=== PATIENT | male | born 1955 | race Caucasian/White ===

== ENCOUNTER → 2020-05-04 | Outpatient (CLI) | payer OTHER ==
[~2020-05-04] MED LIST: ACCUPRIL10 MG PO; ALDACTONE25 MG PO; ASPIR 8181 MG PO; HYDROCODONE-APA1 TA1 PO; ISORDIL40 M1 PO; LEVOTHYROXIN0.137 M1 PO; LIPITOR40 MG PO; METFORMIN HCL500 MG PO; MOBIC15 MG PO; NAPROSYN500 MG PO; NEURONTIN 300300 M1 PO; PLAVIX 75 MG TA75 MG PO; PROTONIX40 M1 PO; TOPROL XL25 MG PO; VASCEPA1 GM PO; ZETIA10 MG PO
== END ==
LOC: SJCVCIMAG 07:48
PROVIDERS: ATTEND Internal Medicine Cardiovascular Disease
DX: I25.10 Atherosclerotic heart disease of native coronary artery without angina pectoris (principal); I49.3 Ventricular premature depolarization; Z87.891 Personal history of nicotine dependence

== ENCOUNTER 2020-07-03 23:01 | Inpatient (IN) | payer OTHER ==
[~2020-07-03] VITALS: Ht 190.5 cm; Wt 97.1 kg
[2020-07-03 23:01] VITALS: BP 138/78
[2020-07-03 23:32] LABS: HEMATOCRIT 41.5 % (42.0-52.0); HEMOGLOBIN 13.7 gm/dL (14.0-18.0); MCH 29.6 pg (26.0-34.0); MCHC 33.1 g/dL (28.0-37.0); MCV 89.5 fL (80.0-100.0); PLATELET COUNT 157 thou/uL (150-400); RBC 4.64 mil/uL (4.50-6.00); RDW 15.2 % (10.5-14.5); WBC 2.8 thou/uL (4.0-11.0)
--- NOTE | 2020-07-03 23:47 | NUR ---
SANDY ([facility]) [phone] LORI ([facility]) [phone]
[2020-07-03 23:51] LABS: ALBUMIN 3.2 g/dL (3.4-5.0); ANION GAP 8 mmol/L (7-16); BUN 8 mg/dL (7-18); CALCIUM 8.4 mg/dL (8.5-10.1); CHLORIDE 103 mmol/L (98-107); CO2 28 mmol/L (21-32); CREATININE 0.9 mg/dL (0.7-1.3); DIRECT BILIRUBIN 0.1 mg/dL (<0.1-0.2); GLUCOSE 129 mg/dL (74-106); MAGNESIUM 1.6 mg/dL (1.8-2.4); PHOSPHORUS 2.6 mg/dL (2.5-4.9); SGOT 23 U/L (15-37); SGPT 23 U/L (30-65); SODIUM 139 mmol/L (136-145); TOTAL BILIRUBIN 0.6 mg/dL (0.2-1.0); TOTAL PROTEIN 6.8 g/dL (6.4-8.2); TROPONIN-I <0.06 ng/mL (<0.06)
[2020-07-03] MEDS ORDERED: HYDROXYZINE HCL25 M2 PO (23:51)
[2020-07-03] MEDS ORDERED: TREXALL7.5 MG PO (23:53)
[2020-07-03] MEDS ORDERED: AZULFIDINE500 MG PO (23:54)
[2020-07-03] MEDS ORDERED: NEURONTIN 300M300 M2 PO (23:54)
--- NOTE | 2020-07-03 23:55 | NUR ---
LEVI ([facility]) [phone]
[2020-07-03] MEDS ORDERED: ISOSORBIDE MONO60 M1 PO (23:56)
[2020-07-03] MEDS ORDERED: PROTONIX40 M4 PO (23:57)
[2020-07-03] MEDS ORDERED: ENALAPRIL MALEA10 M1 PO (23:58)
[2020-07-03] MEDS ORDERED: FOLIC ACID1 MG PO (23:58)
[2020-07-03 23:59] LABS: POTASSIUM 2.8 mmol/L (3.5-5.1)
[2020-07-04] VITALS (7 sets, daily range): BP systolic 111–141; BP diastolic 63–79
[2020-07-04] MEDS ORDERED: JARDIANCE10 MG PO
[2020-07-04] MEDS ORDERED: LEVO-T100 MCG PO (00:01)
[2020-07-04 00:35] LABS: ABSOLUTE NEUTROPHILS 1.9 thou/uL (1.4-8.2)
--- NOTE | 2020-07-04 03:44 | NUR ---
Kyree CASAS NP ROUNDED: SAID TO NOT DRAW AM LABS AT 03-0400 BUT TO WAIT UNTIL 4 HOURS AFTER LAST PO POTASSIUM DOSE DUE AT 0415. BLOOD CULTURES AND OTHER LABS RETIMED FOR 814. LAB INFORMED TO RETIMED LAB DRAW. WILL REPORT TO DAY SHIFT RN. COMPLETE NS WITH KCL AND THEN START NS PER Kyree CASAS NP.
[2020-07-04 08:33] LABS: HEMATOCRIT 41.9 % (42.0-52.0); HEMOGLOBIN 13.8 gm/dL (14.0-18.0); MCH 29.6 pg (26.0-34.0); MCHC 32.8 g/dL (28.0-37.0); MCV 90.3 fL (80.0-100.0); RBC 4.64 mil/uL (4.50-6.00); RDW 15.6 % (10.5-14.5); WBC 2.2 thou/uL (4.0-11.0)
[2020-07-04 08:49] LABS: CALCIUM 8.4 mg/dL (8.5-10.1); POTASSIUM 3.6 mmol/L (3.5-5.1)
--- NOTE | 2020-07-04 14:16 | EKG ---
[place] [address] [place] [address] ELECTROCARDIOGRAM REPORT Name: OMAR RUTLEDGE Room #: 349-I ADM IN ..#: [id number] Admission: 07/04/20 Attend Phys: Dawson Ornelas MD Discharge: Date of : 57 Report #: [id number] [facility] ED Test Date: 2020-07-03 Test Time: 23:09:19 Pat Name: OMAR RUTLEDGE Department: Room: [facility] Gender: M Advertisement Distributor: PAULINO : 1955 Requested By: Quentin Gaitan Order Number: [id number] MD: Momo Milner Measurements Intervals [place] Rate: 86 P: 57 HI: 174 QRS: 62 QRSD: 97 T: 56 QT: 389 QTc: 466 Interpretive Statements Sinus rhythm Borderline low voltage, extremity leads Baseline wander in lead(s) III,aVL,V6 Compared to ECG 04/20/2015 07:54:37 No significant changes Electronically Signed On 07-04-2020 14:16:33 RESEARCH CONSULTANT by Momo Milner [email or web address] <ELECTRONICALLY SIGNED> By: Momo Milner MD, [facility] 07/04/20 1416 230 08 Momo Milner MD, [facility] /EPI
--- NOTE | 2020-07-04 19:09 | NUR ---
Patient has slept through the day and does not seem to be in pain. respirations are even non labored on room air. will cont with plan of care.
--- NOTE | 2020-07-04 22:01 | NUR ---
PT ALERT AND ORIENTED X4 VSS AFEBRILE. C/O MARSHALL. MEDICAATED WITH 2 TYLENOL. FLU A&B RESENT TO LAB. BED DOWN CALL LIGHT IN REACH. NO S/S DISTRESS.
[2020-07-05 03:04] VITALS: BP 131/83
[2020-07-05 03:37] LABS: URINE BILIRUBIN NEGATIVE (Negative); URINE BLOOD NEGATIVE (Negative); URINE CLARITY CLEAR; URINE COLOR YELLOW; URINE GLUCOSE-RANDOM* 3+ (Negative); URINE KETONES NEGATIVE (Negative); URINE LEUKOCYTES-REFLEX NEGATIVE (Negative); URINE NITRITE-REFLEX NEGATIVE (Negative); URINE PROTEIN (DIPSTICK) TRACE (Negative); URINE UROBILINOGEN 0.2 E.U./dl (0.2-1.0)
--- NOTE | 2020-07-05 05:11 | NUR ---
PT PROGRESSING WELL TOWARDS D/C GOALS. VSS AFEBRILE . BREATHING UNLABORED. SATS WNL ON RA.RETING QUIETLY.
[2020-07-05 05:58] LABS: ABSOLUTE NEUTROPHILS 3.8 thou/uL (1.4-8.2); BASOPHILS 0.4 % (0.0-2.0); EOSINOPHILS 0.1 % (0.0-3.0); HEMATOCRIT 40.5 % (42.0-52.0); HEMOGLOBIN 13.2 gm/dL (14.0-18.0); MCH 29.7 pg (26.0-34.0); MCHC 32.5 g/dL (28.0-37.0); MCV 91.3 fL (80.0-100.0); MONOCYTES 7.1 % (1.0-8.0); PLATELET COUNT 166 thou/uL (150-400); POLYS 75.4 % (36.0-66.0); RBC 4.43 mil/uL (4.50-6.00); RDW 15.8 % (10.5-14.5)
[2020-07-05 06:28] LABS: CALCIUM 8.2 mg/dL (8.5-10.1); CREATININE 0.9 mg/dL (0.7-1.3); POTASSIUM 3.2 mmol/L (3.5-5.1)
[2020-07-05 07:05] VITALS: BP 127/80
--- NOTE | 2020-07-05 07:32 | HC ---
[facility] [place] [address] CONSULTATION Name: OMAR RUTLEDGE Room #: 349-I ADM IN .R.#: [id number] Admission: 07/04/20 Attend Phys: Dawson Ornelas MD Discharge: Date of : 57 Report #: [id number] THIS REPORT FOR: cc: Chava Joseph MD, Steven E. MD Barry, Joseph W. MD ~ DATE OF SERVICE: 07/04/2020 INFECTIOUS DISEASE CONSULTATION ATTENDING PHYSICIAN: Dr. Ornelas. REASON FOR EVALUATION: COVID-19 infection as well as positive influenza antigen testing. HISTORY OF PRESENT ILLNESS: Chart reviewed, patient examined. This is a 65-year-old with diabetes mellitus, known vasculopathy, was admitted with generalized fatigue, increased shortness of breath in particular over the last few days. He may have had some low-grade fevers and chills, which have resolved. Did have some loose stools as well. Denies any significant derangement of his taste or smell. Initial evaluation showed positive influenza A and B antigen as well as coronavirus antigen. Chest x-ray showed mild bilateral interstitial opacities. Procalcitonin less than 0.05. He has not required supplemental oxygen to this point. He is empirically started on therapy with azithromycin, ceftriaxone, oseltamivir. ALLERGIES: Listed to CONTRAST DYE. CURRENT MEDICATIONS: Include hydroxyzine, enoxaparin, guaifenesin, folic acid, aspirin, lisinopril, metoprolol, isosorbide mononitrate, atorvastatin, ezetimibe, clopidogrel, sulfasalazine, dexamethasone, metformin, levothyroxine, pantoprazole, insulin, azithromycin, and ceftriaxone. PAST MEDICAL HISTORY: As described above, diabetes mellitus, has known coronary artery disease, previous aortocoronary bypass grafting, hypertension, high cholesterol, hypothyroidism, arthritis, reflux. SOCIAL HISTORY: Nonsmoker, no ethanol, no illicit drug use. FAMILY HISTORY: Noncontributory. REVIEW OF SYSTEMS: Otherwise, unremarkable 10-point review of systems. PHYSICAL EXAMINATION: GENERAL: Alert, cooperative, appropriate. He is not significantly distressed. [facility] [address] [place] [address] CONSULTATION Name: OMAR RUTLEDGE Room #: 349-I [facility]#: [id number] Admission: 07/04/20 Attend Phys: Dawson Ornelas MD Discharge: Date of : 57 Report #: [id number] He is lucid, reasonably well nourished. VITAL SIGNS: Temperature 97.7, pulse 83, respirations 19, blood pressure 111/63. SKIN: Warm, dry, no rashes. HEENT: Normocephalic. Extraocular muscles intact. NECK: Supple. LUNGS: Generally clear to auscultation bilaterally. HEART: Regular. I do not appreciate any murmur. ABDOMEN: Soft, nontender. EXTREMITIES: No cyanosis. GENITOURINARY AND RECTAL: Deferred. LABORATORY DATA: Electrolytes: Sodium 141, potassium 3.6, chloride 105, bicarbonate is 26, anion gap of 10, BUN and creatinine 8 and 1.0, glucose of 160. Estimated GFR of 75. CBC: White count of 2.2, H and H 13.8 and 41.9, platelets of 152. Initial white count was 2.8. Does have lymphocytopenia. Liver functions were otherwise unremarkable. ASSESSMENT: 1. Coronavirus complicated by mild pneumonitis. 2. Positive influenza antigen testing for both A and B. 3. Diabetes mellitus. 4. Coronary artery disease. PLAN: At this point, we would suspect does indeed have coronavirus. We would add additional therapy for that in addition to the empiric therapy for possible secondary bacterial pneumonia. We will see how he does clinically. At this point, he is not overtly distressed. He is not on supplemental oxygen. We will hold off on remdesivir. He is to continue corticosteroids. We will add vitamins and ivermectin as well. He will be tested for influenza, he is somewhat uncertain about the leukopenia, if he has got an occult process or simply a bone marrow suppression due to reactive cause. I will repeat labs in the morning. If persists, may need to consider Hematology/Oncology evaluation or perhaps bone marrow study. At this point, he looks not acutely ill. <ELECTRONICALLY SIGNED> By: Alton Iyer MD 07/05/20 0732 1720 190 Alton Iyer MD /nt
--- NOTE | 2020-07-05 10:19 | NUR ---
ORDERS RECEIVED FOR EVAL AND TREAT. NURSING STATES Pt IS UP AD LAI. SPOKE WITH Pt WHO STATES HE IS HAVING NO DIFFICULTY WITH MOBILITY AND HOPING TO GO HOME SOON. ON ROOM AIR. Pt DECLINING FORMAL P.T. EVAL BUT SOUNDS LIKE HE IS SAFE FOR HOME WHEN MEDICALLY CLEAR
[2020-07-05] MEDS ORDERED: CEFDINIR300 MG PO (12:03)
[2020-07-05] MEDS ORDERED: STROMECTOL3 MG PO (12:03)
[2020-07-05] MEDS ORDERED: OSELTAMIVIR PHO75 MG PO (12:05)
[2020-07-05] MEDS ORDERED: RAYOS5 MG PO (12:45)
--- NOTE | 2020-07-05 14:33 | NUR ---
INITIAL ASSESSMENT/DISCHARGE NOTE: AIDA reviewed chart and spoke with nursing and attending physician. Pt was admitted from home due weakness/fatigue. Pt placed in Enhanced Isolation due to COVID. Pt started on Ivermectin. Attending physician completed discharge orders/summary for pt to discharge home today. AIDA placed call to pt's room. No answer. AIDA left voice message for pt on his cell phone: [phone]. Per chart, pt is alert/orientated x 4. Pt lives at home. Pt is employed and has health insurance. No discharge needs identified at this time. AIDA is following to assist as needed with discharge planning.
[2020-07-05 15:02] VITALS: BP 126/73
[2020-07-05 16:00] VITALS: BP 126/73
[2020-07-05 18:19] VITALS: BP 126/73
== END 2020-07-05 18:19 | disposition home or self-care (01) | DRG 177 ==
LOC: ER 23:01 → EROBS 07-04 00:31 → 3W 07-04 00:31
PROVIDERS: Emergency Medicine; Family Medicine; Nurse Practitioner Family; Specialist; ADMIT Hospitalist; ATTEND Hospitalist
DX: U07.1 COVID-19 (principal); J12.82 Pneumonia due to coronavirus disease 2019; J10.08 Influenza due to other identified influenza virus with other specified pneumonia; J15.9 Unspecified bacterial pneumonia; E11.9 Type 2 diabetes mellitus without complications; E03.9 Hypothyroidism, unspecified; K21.9 Gastro-esophageal reflux disease without esophagitis; I10 Essential (primary) hypertension; E78.5 Hyperlipidemia, unspecified; I25.10 Atherosclerotic heart disease of native coronary artery without angina pectoris; E78.00 Pure hypercholesterolemia, unspecified; M19.90 Unspecified osteoarthritis, unspecified site; G93.3 Postviral and related fatigue syndromes; E87.6 Hypokalemia; Z87.891 Personal history of nicotine dependence; R53.81 Other malaise; Z79.4 Long term (current) use of insulin; Z95.5 Presence of coronary angioplasty implant and graft; Z95.1 Presence of aortocoronary bypass graft; Z79.899 Other long term (current) drug therapy; Z91.041 Radiographic dye allergy status
CPT/HCPCS: 10879